=== PATIENT | female | born 1990 | race Caucasian/White ===

== ENCOUNTER 2017-07-24 03:01 | Inpatient (IN) | payer OTHER ==
[2017-07-24] VITALS (29 sets, daily range): BP systolic 103–147; BP diastolic 53–85
[~2017-07-24] VITALS: Ht 160 cm; Wt 74.3 kg
[2017-07-24] MEDS ORDERED: PRENATAL TABLE1 EAC3 PO (03:30)
[2017-07-24] MEDS ORDERED: CLARITIN-D 21 TABLET PO (03:30)
[2017-07-24] MEDS ORDERED: TYLENOL325 M2 PO (03:31)
[2017-07-24 05:07] LABS: BASOPHIL (%) 0.3 % (0-1); EOSINOPHIL (%) 0.1 % (0-5); HEMATOCRIT 35.7 % (36.0-46.0); HEMOGLOBIN 11.9 G/DL (11.9-15.5); IMMATURE GRANULOCYTE (%) 0.7 % (0.0-0.7); LYMPHOCYTE (%) 10.4 % (15-42); LYMPHOCYTE COUNT 1.6 K/uL (1.0-2.8); MCH 30.7 PG (29.0-34.0); MCHC 33.3 G/DL (30.0-36.0); MONOCYTE (%) 6.5 % (3-12); NEUTROPHIL COUNT 12.9 K/uL (1.8-6.4); PLATELET COUNT 222 K/uL (156-360); RBC DIS.WIDTH-CV 12.7 % (11.8-14.6); RBC DIS.WIDTH-SD 42.2 % (39-53); RED BLOOD COUNT 3.88 M/uL (3.80-5.20); WHITE BLOOD COUNT 15.7 K/uL (4.1-10.2)
[2017-07-24 05:43] LABS: AMPHETAMINE NEGATIVE (500 ng/mL); BARBITURATES NEGATIVE (200 ng/mL); BENZODIAZEPINES NEGATIVE (150 ng/mL); BUPRENORPHINE NEGATIVE (10 ng/mL); COCAINE NEGATIVE (150 ng/mL); METHADONE NEGATIVE (200 ng/mL); METHAMPHETAMINE NEGATIVE (500 ng/mL); OPIATES (MORPHINE) NEGATIVE (100 ng/mL); OXYCODONE NEGATIVE (100 ng/mL); PHENCYCLIDINE NEGATIVE (25 ng/mL); PROPOXYPHENE NEGATIVE (300 ng/mL); THC CANNABINOIDS NEGATIVE (50 ng/mL); TRICYCLIC ANTIDEPRESSANTS NEGATIVE (300 ng/mL)
[2017-07-24] MEDS ORDERED: PERCOCET 5/31 TABLET PO (21:18)
[2017-07-24] MEDS ORDERED: MOTRIN800 MG PO (21:18)
[2017-07-25 00:37] VITALS: BP 130/72
[2017-07-25 02:55] VITALS: BP 121/66
[2017-07-25 05:59] LABS: BASOPHIL (%) 0.2 % (0-1); EOSINOPHIL (%) 0 % (0-5); HEMATOCRIT 28.3 % (36.0-46.0); IMMATURE GRANULOCYTE (%) 0.8 % (0.0-0.7); LYMPHOCYTE (%) 5.1 % (15-42); LYMPHOCYTE COUNT 1.3 K/uL (1.0-2.8); MCH 31.4 PG (29.0-34.0); MCHC 33.6 G/DL (30.0-36.0); MCV 93.4 FL (83-99); MONOCYTE (%) 7.2 % (3-12); MONOCYTE COUNT 1.9 K/uL (0-0.8); NEUTROPHIL (%) 86.7 % (45-76); NEUTROPHIL COUNT 22.6 K/uL (1.8-6.4); PLATELET COUNT 178 K/uL (156-360); RBC DIS.WIDTH-CV 13.2 % (11.8-14.6); RBC DIS.WIDTH-SD 45.1 % (39-53); WHITE BLOOD COUNT 26.1 K/uL (4.1-10.2)
[2017-07-25 06:33] LABS: HEMOGLOBIN 9.5 G/DL (11.9-15.5); RED BLOOD COUNT 3.03 M/uL (3.80-5.20)
[2017-07-25 07:49] VITALS: BP 115/65
[2017-07-25 19:33] VITALS: BP 112/63
[2017-07-25 23:09] VITALS: BP 123/61
[2017-07-26 02:47] VITALS: BP 132/73
== END 2017-07-26 16:25 | disposition home or self-care (01) | DRG 765 ==
LOC: LDRP-OP 03:01 → 2WEST 03:02 → LDRP-OP 08-20 10:57
PROVIDERS: Midwife; Obstetrics & Gynecology
PROC: 10D00Z1 Extraction of Products of Conception, Low, Open Approach (ICD-10-PCS; principal; 2017-07-24)
PROC: 3E0R3BZ Introduction of Anesthetic Agent into Spinal Canal, Percutaneous Approach (ICD-10-PCS; 2017-07-24)
PROC: 00HU33Z Insertion of Infusion Device into Spinal Canal, Percutaneous Approach (ICD-10-PCS; 2017-07-24)
DX: O76 Abnormality in fetal heart rate and rhythm complicating labor and delivery (principal); O62.0 Primary inadequate contractions; O99.02 Anemia complicating childbirth; D62 Acute posthemorrhagic anemia; O99.353 Diseases of the nervous system complicating pregnancy, third trimester; G43.909 Migraine, unspecified, not intractable, without status migrainosus; Z3A.40 40 weeks gestation of pregnancy; Z37.0 Single live birth
CPT/HCPCS: 85025; C1755; J1100; J1580; J2274; J2405; J2590; J3010; J7120